=== PATIENT | male | born 1980 | race Caucasian/White ===

== ENCOUNTER 2021-02-15 18:06 | Emergency (ER) | payer BC ==
[~2021-02-15] VITALS: Ht 167.6 cm; Wt 90.9 kg
[2021-02-15 18:23] VITALS: BP 144/95; TEMP 99.3
[2021-02-15] MEDS ORDERED: CEPHALEXIN500 M1 PO (19:11)
[2021-02-15 19:30] VITALS: PULSE 82
== END 2021-02-15 19:32 | disposition home or self-care (01) ==
LOC: COL.ER 18:06
DX: S81.811A Laceration without foreign body, right lower leg, initial encounter (principal); Z23 Encounter for immunization; W22.8XXA Striking against or struck by other objects, initial encounter; Y93.89 Activity, other specified

== ENCOUNTER → 2021-02-27 | Outpatient (CLI) | payer BC ==
[~2021-02-27] MED LIST: CEPHALEXIN500 M1 PO
[2021-02-27 17:25] VITALS: BP 153/89; PULSE 73; TEMP 98.5
== END ==
LOC: COL.ER 17:14
DX: Z48.02 Encounter for removal of sutures (principal)

== ENCOUNTER 2021-09-19 22:56 | Emergency (ER) | payer BC ==
[~2021-09-19] VITALS: Ht 167.6 cm; Wt 93.2 kg
[2021-09-19 23:01] VITALS: BP 123/84; TEMP 98
[2021-09-19] MEDS ORDERED: CEPHALEXIN500 M1 PO (23:23)
[2021-09-19 23:33] VITALS: PULSE 81
== END 2021-09-19 23:31 | disposition home or self-care (01) ==
LOC: COL.ER 22:56
DX: S61.012A Laceration without foreign body of left thumb without damage to nail, initial encounter (principal); W26.8XXA Contact with other sharp object(s), not elsewhere classified, initial encounter; Y92.009 Unspecified place in unspecified non-institutional (private) residence as the place of occurrence of the external cause